=== PATIENT | female | born 1960 | race Caucasian/White ===

== ENCOUNTER 2020-07-20 21:59 | Emergency (ER) | payer BC ==
[~2020-07-20] VITALS: Ht 182.9 cm; Wt 72.6 kg
--- NOTE | 2020-07-20 22:04 | NUR ---
PT AAOX4. BIBSELF C/O COUGH, SOB, FEVER, BODY ACHES, SORE THROAT, DIARRHEA X2 DAYS. PT PLACED IN BED 16 ON MONITOR AND PULSE OX. VSS. RR EVEN AND UNLABORED. MD AT BEDSIDE FOR EVAL, AWAITING ORDERS.
--- NOTE | 2020-07-20 22:10 | NUR ---
TOBACCO GRADER AT BEDSIDE FOR LABS
--- NOTE | 2020-07-20 22:25 | NUR ---
TRACEYID SWABBED, SENT TO LAB.
[2020-07-20 22:34] LABS: MONOCYTES # (AUTO) 0.5 /CMM (0.1-1.30); NEUTROPHILS # (AUTO) 2.4 /CMM (1.8-8.9)
[2020-07-20 22:38] LABS: BASOPHILS % (AUTO) 0.7 % (0.0-2.0); EOSINOPHILS % (AUTO) 0.9 % (0.0-6.0); HEMATOCRIT 40 % (33-45); LYMPHOCYTES # (AUTO) 1.1 /CMM (0.8-4.8); LYMPHOCYTES % (AUTO) 27.3 % (20.0-44.0); MEAN CORPUSCULAR HGB CONC 33 g/dl (31.0-36.0); MEAN CORPUSCULAR VOLUME 91 fL (82-100); MONOCYTES % (AUTO) 12.6 % (2.0-12.0); NEUTROPHILS % (AUTO) 58.5 % (43.0-81.0); PLATELET COUNT (AUTO) 167 /CMM (150-450); RED BLOOD CELL COUNT(AUTO) 4.32 MIL/uL (4.0-5.2)
[2020-07-20 22:41] LABS: CALCIUM, SERUM 8.1 mg/dL (8.5-10.1); CREATININE 0.7 mg/dL (0.6-1.3); POTASSIUM 4.2 mmol/L (3.5-5.1)
--- NOTE | 2020-07-20 22:43 | NUR ---
XRAY AT BEDSIDE
[2020-07-20 22:47] LABS: ALBUMIN 3.2 g/dL (3.4-5.0); BILIRUBIN,TOTAL 0.1 mg/dL (0.2-1.0); TOTAL PROTEIN, SERUM 6.9 g/dL (6.4-8.2)
--- NOTE | 2020-07-20 23:06 | NUR ---
LAB CALLED REGARDING POSITIVE COVID RESULT.
[2020-07-20] MEDS ORDERED: DEXAMETHASONE SOD PHOSPHATE 10 MG/ML VIAL ONE (23:10)
[2020-07-20] MEDS ORDERED: HYDROXYCHLOROQUINE 200 MG TABLET ONE (23:24)
[2020-07-20] MEDS ORDERED: DEXAMETHASONE SOD PHOSPHATE 10 MG/ML VIAL IV ONE (23:30)
[2020-07-20] MEDS ORDERED: HYDROXYCHLOROQUINE 200 MG TABLET PO SCH (23:30)
[2020-07-21 00:01] VITALS: BP 124/82
--- NOTE | 2020-07-21 00:01 | NUR ---
IV removed. Catheter intact and site benign. Pressure and 4x4 applied to site. No bleeding noted. Patient discharged to home in stable condition. Written and verbal after care instructions given. Patient verbalizes understanding of instruction and rx. Pt ambulated out of E.D. vss.
--- NOTE | 2020-07-21 21:35 | NUR ---
COVID POSITIVE PER LAB.
== END 2020-07-21 00:02 | disposition home or self-care (01) ==
LOC: ER 22:01
DX: U07.1 COVID-19 (principal); Z88.2 Allergy status to sulfonamides; R19.7 Diarrhea, unspecified; R06.02 Shortness of breath
CPT/HCPCS: 36415; 71045; 80053; 85025; 87426; 87804; 93005; 96374; 99285; C9803; J1100; U0003